=== PATIENT | female | born 1950 | race Caucasian/White ===

== ENCOUNTER 2016-12-17 14:46 | Emergency (ER) | payer SELFPAY ==
[~2016-12-17] VITALS: Ht 162.6 cm; Wt 80.9 kg
[~2016-12-17 14:46] MED LIST: LISI40TA PO; MTR/400 PO
[2016-12-17 14:56] VITALS: BP 130/91; TEMP 36.9; Ht 162.6 cm; Wt 80.9 kg
[2016-12-17] MEDS ORDERED: DIPHTHERIA/TETANUS/PERTUSSIS 0.5 ML SYR/VIAL IM. ONE (15:45)
--- NOTE | 2016-12-17 15:54 | EMERGENCY ROOM VISIT NOTE ---
History First contact with patient: 15:17 Chief Complaint: HAND PAIN/INJURY Stated Complaint: PUNCTURE IN HAND, SWOLLEN History of Present Illness The patient is a 66 year old female who presents to the Emergency Room with complaints of a puncture wound to her left palm. The patient was attempting to insert a corn caal into the base of the candle when it slipped and punctured her hand. The patient does report an initial paresthesias that aren't improving. She denies any significant bleeding, but does report swelling around the puncture site. The patient is uncertain of her last tetanus immunization. The patient is [id number], and rates her pain a 4 out of 10. Review of Systems 6 system review was performed and was negative except for pertinent positives and negatives as indicated in history of present illness Past Medical/Surgical History Medical Problems: (1) Benign hypertension Family History FH: diabetes mellitus FH: hypertension Social History Smoking Status: Never Smoker Alcohol Use: occasionally Drug Use: none Marital Status: Housing Status: lives with family Occupation Status: unemployed Current/Historical Medications Scheduled Lisinopril (Zestril), 30 MG PO DAILY Scheduled PRN Ibuprofen (Ibuprofen), 400 MG PO DIRECTED PRN for Pain Physical Exam Vital Signs Date Time Temp Pulse Resp B/P (MAP) Pulse Ox O2 Delivery O2 Flow Rate FiO2 12/17/16 14:56 36.9 115 20 130/91 94 Room Air Physical Exam CONSTITUTIONAL: Healthy and well nourished. Patient does not appear in any acute distress. MUSCULOSKELETAL: Examination of the left hand shows 2 small puncture wounds at the base of the thenar eminence. There is a small amount of edema and ecchymosis about the wounds. The patient is able to flex and extend the fingers and wrist without significant discomfort. Capillary refill of the fingers is less than 2 seconds. INTEGUMENTARY: No rash or other significant dermatologic conditions noted. NEUROLOGIC: Left hand and fingers are sensory intact. Medical Decision & Procedures ED Course Patient history and physical exam were performed. Nurse's notes were reviewed. Vital signs were reviewed and normal. The patient is noted to have a tight ring on her left fourth finger. The ring was successfully removed. The patient was administered Adacel IM. The patient was encouraged to intermittently apply ice and elevate the hand for swelling. Ibuprofen or Tylenol if needed for additional pain relief. She was instructed to watch for any signs of developing infection, and return to the emergency department immediately. The patient was happy with plan of care, and voiced understanding of all discharge instructions. Medical Decision Medication Reconcilliation Current Medication List: was personally reviewed by me Blood Pressure Screening Patient's blood pressure: Normal blood pressure Impression Primary Impression: Puncture wound of left palm Departure Information Dispostion Home / Self-Care Forms HOME CARE DOCUMENTATION FORM, IMPORTANT VISIT INFORMATION Patient Instructions My [facility] Additional Instructions Intermittently apply ice and elevate hand as needed for swelling. Ibuprofen or Tylenol as needed for pain. Watch for any signs of infection, and return to the emergency department over the weekend for any progressively worsening symptoms. Problem Qualifiers Primary Impression: Puncture wound of left palm Encounter type: initial encounter Qualified Codes: S61.432A - Puncture wound without foreign body of left hand, initial encounter
[2016-12-17] MEDS ORDERED: LISI-725 PO ×2 (16:01)
[2016-12-17] MEDS ORDERED: IBUP-1050 PO (16:01)
[2016-12-17 16:11] VITALS: PULSE 99; O2SAT 94
== END 2016-12-17 16:12 | disposition home or self-care (01) ==
LOC: C.EDB 14:48 → C.EDD 16:12
DX: S61.432A Puncture wound without foreign body of left hand, initial encounter (principal); W45.8XXA Other foreign body or object entering through skin, initial encounter; I10 Essential (primary) hypertension; Z83.3 Family history of diabetes mellitus; Z82.49 Family history of ischemic heart disease and other diseases of the circulatory system; Z23 Encounter for immunization